=== PATIENT | female | born 1960 | race Caucasian/White ===

== ENCOUNTER → 2020-07-17 | Outpatient (CLI) | payer OTHER ==
[~2020-07-17] MED LIST: ASA81BEC PO; DUEXIS 800-26.1 EACH PO; SOMA350 MG PO; ZYPITAMAG4 MG PO
== END ==
LOC: SJCVCIMAG 13:18
PROVIDERS: ATTEND Internal Medicine Cardiovascular Disease
DX: I44.7 Left bundle-branch block, unspecified (principal); R94.31 Abnormal electrocardiogram [ECG] [EKG]

== ENCOUNTER → 2020-07-18 | Outpatient (CLI) | payer OTHER ==
[~2020-07-18] VITALS: Ht 162.6 cm; Wt 70.3 kg
[2020-07-18 07:28] VITALS: BP 129/57
[2020-07-18 08:06] LABS: HEMATOCRIT 37.9 % (37.0-47.0); HEMOGLOBIN 12.7 gm/dL (12.0-15.0); MCH 30.9 pg (26.0-34.0); MCHC 33.6 g/dL (28.0-37.0); RBC 4.12 mil/uL (4.20-5.00); RDW 13.7 % (10.5-14.5); WBC 4.7 thou/uL (4.0-11.0)
[2020-07-18 08:31] LABS: CALCIUM 9.1 mg/dL (8.5-10.1); CREATININE 0.7 mg/dL (0.6-1.0); POTASSIUM 3.7 mmol/L (3.5-5.1)
--- NOTE | 2020-07-18 10:59 | EKG ---
[facility] [place] [address] [address] ELECTROCARDIOGRAM REPORT Name: RAH CONTRERAS Room #: REG [facility].#: [id number] Admission: 07/18/20 Attend Phys: Elian Gonzalez MD, Discharge: Date of : 60 Report #: [id number] THIS REPORT FOR: cc: Jason Arce Alan Z. DO Santiago, Patrick MD [facility] ~ THIS REPORT FOR: //name// [facility] Test Date: 2020-07-18 Test Time: 07:38:00 Pat Name: RAH CONTRERAS Department: Room: Gender: F [employer] Worker: YANDEL : 1960 Requested By: Elian Gonzalez Order Number: [id number] MD: Yeison Alicea Measurements Intervals [facility] Rate: 72 P: 44 MT: 192 QRS: -11 QRSD: 159 T: 75 QT: 427 QTc: 468 Interpretive Statements Sinus rhythm Probable left atrial enlargement Left bundle branch block Baseline wander in lead(s) V4 No previous ECG available for comparison Electronically Signed On 07-18-2020 10:58:45 HEAD ANIMAL TRAINER by Yeison Alicea [email or web address] <ELECTRONICALLY SIGNED> By: Yeison Alicea MD, FACC 07/18/20 1058 7 Yeison Alicea MD, [facility] /EPI
--- NOTE | 2020-07-22 11:17 | CATHLAB ---
[facility] [place] [address] INVASIVE PROCEDURE REPORT Name: RAH CONTRERAS Room #: REG [facility].#: [id number] Admission: 07/18/20 Attend Phys: Elian Gonzalez MD, Discharge: Date of : 60 Report #: [id number] THIS REPORT FOR: cc: Jason Arce Alan Z. DO Mancuso, Gerald M. MD [facility] ~ APPROVED REPORT Study performed: 07/18/2020 07:41:19 Patient Details Patient Status: Out-Patient Room #: The patient is a 60 year-old female Event Personnel Elian Gonzalez Sanitary Engineering Teacher, Jose Guadalupe Davis RN RN, Minoo Plaza RTR, MACHINE TECH Monitor, Esau Barbour RTR Scrub Procedures Performed Art Access - R femoral artery* Left Heart Cath w/or w/o Coronaries [id number] [facility] Aortogram Abdominal Peripheral Angio 043463 09803 Initial Mod Sed Same Phys/QHP Gr 412006 29327 Mod Sed Same Phys/QHP Ea 187571 Hemostasis w/ Mynx Indication Positive stress test Procedure Narrative The Right Groin^ was infiltrated with 1% Lidocaine subcutaneous anesthesia. A PINNACLE 6FR Sheath #[id number] sheath was inserted into the RFA^. Coronary angiography was performed using coronary diagnostic catheters. The right coronary system was accessed and visualized with a JR4 catheter. The left coronary system was accessed and visualized with a JL4 catheter. The left ventricle was accessed and visualized with a PIGTAIL catheter. Left ventriculogram was performed in 30 degree projection. An aortogram of the abdominal aorta was performed. Pre-demployment femoral angiogram was performed . Closure device was deployed with a 6 Fr MYNXGRIP 6/7F #[id number]. The patient tolerated the procedure well and there were no complications associated with the procedure. There was no hematoma. Intraoperative Conscious Sedation Sedation start time: 09:09 Case end Time: [facility] [address] [place] [address] INVASIVE PROCEDURE REPORT Name: BENLAWRENCE Room #: REG [facility]#: [id number] Admission: 07/18/20 Attend Phys: Elian Gonzalez, Discharge: Date of : 60 Report #: [id number] 09:35 Fentanyl 25 mcg Versed 1 mg Fluoro Time: 1.40 minutes Dose: DAP 2357.90 cGycm2 261 mGy Contrast Type and Amount: Visipaque 100 ml Hemodynamics The aortic pressure is 140/75 mmHg with a mean of 102 mmHg. The left ventricular pressure is 149/4 mmHg with a mean of mmHg. The left ventricular end diastolic pressure is 12 mmHg. Conclusion #1. Normal left ventricular size and systolic function EF 60% #2 abdominal aortogram revealing mild aortic calcification but no definite aneurysm. Single renal arteries appear to be patent. #3 left main with mild irregularity giving rise to LAD and circumflex. #4 LAD with mild distal irregularity otherwise widely patent no occlusive disease. #5 circumflex OM nondominant with minimal irregularity brisk flow #6 dominant right coronary artery with mild irregularity. Recommendations and plan: No indication for coronary intervention. Continue aggressive risk factor modification. Follow-up will be arranged. <ELECTRONICALLY SIGNED> By: Elian Gonzalez MD, FACC 07/22/20 1117 16 16 Elian Gonzalez MD, FACC /INF
== END | disposition home or self-care (01) ==
LOC: CATH 06:28
PROVIDERS: ATTEND Internal Medicine Cardiovascular Disease
DX: R94.39 Abnormal result of other cardiovascular function study (principal); I25.10 Atherosclerotic heart disease of native coronary artery without angina pectoris; I70.0 Atherosclerosis of aorta; I10 Essential (primary) hypertension; E78.5 Hyperlipidemia, unspecified; K21.9 Gastro-esophageal reflux disease without esophagitis; Z98.890 Other specified postprocedural states; Z79.899 Other long term (current) drug therapy

== ENCOUNTER → 2020-08-21 | Outpatient (CLI) | payer OTHER | LOC: SJCVCIMAG 08:40 | PROVIDERS: ATTEND Internal Medicine Cardiovascular Disease | DX: I34.0 Nonrheumatic mitral (valve) insufficiency (principal); R94.31 Abnormal electrocardiogram [ECG] [EKG] ==

== ENCOUNTER → 2021-03-19 | Outpatient (CLI) | payer OTHER | LOC: CAT 16:20 | PROVIDERS: ATTEND Internal Medicine Cardiovascular Disease | DX: Z13.6 Encounter for screening for cardiovascular disorders (principal); E78.00 Pure hypercholesterolemia, unspecified; I25.10 Atherosclerotic heart disease of native coronary artery without angina pectoris ==